=== PATIENT | male | born 2000 | race African-American/Black ===

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

== ENCOUNTER 2019-07-26 19:26 | Emergency (ER) | payer OTHER ==
[~2019-07-26] VITALS: Ht 167.6 cm; Wt 74.8 kg
[~2019-07-26 19:26] MED LIST: DICL100T PO
[2019-07-26 19:58] VITALS: BP 153/97
[2019-07-26] MEDS ORDERED: CYCL10TA2 PO (20:47)
[2019-07-26] MEDS ORDERED: NAPR-514 PO (20:47)
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
== END 2019-07-26 21:02 | disposition home or self-care (01) ==
LOC: ER 19:26
DX: S16.1XXA Strain of muscle, fascia and tendon at neck level, initial encounter (principal); V43.52XA Car driver injured in collision with other type car in traffic accident, initial encounter; Y93.I9 Activity, other involving external motion; Y92.488 Other paved roadways as the place of occurrence of the external cause; Y99.8 Other external cause status
CPT/HCPCS: 99283

== ENCOUNTER 2019-08-29 16:02 | Emergency (ER) | payer OTHER ==
[~2019-08-29] VITALS: Ht 170.2 cm; Wt 64.4 kg
[~2019-08-29 16:02] MED LIST changes: +CYCL10TA2 PO; +NAPR-514 PO
[2019-08-29 16:30] VITALS: BP 144/89
[2019-08-29] MEDS ORDERED: KETOROLAC 60 MG/2 ML VIAL. IM ONE (17:00)
[2019-08-29] MEDS ORDERED: ORPHENADRINE CITRATE 60 MG/2 ML VIAL. IM ONE (17:00)
[2019-08-29] MEDS ORDERED: NAPR-514 PO (17:56)
[2019-08-29] MEDS ORDERED: CYCL10TA2 PO (17:56)
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
== END 2019-08-29 19:05 | disposition home or self-care (01) ==
LOC: ER 16:02
DX: M54.5 Low back pain (principal); G89.11 Acute pain due to trauma; M54.6 Pain in thoracic spine; G89.29 Other chronic pain; V49.49XA Driver injured in collision with other motor vehicles in traffic accident, initial encounter; Y93.89 Activity, other specified; Y92.488 Other paved roadways as the place of occurrence of the external cause; Y99.8 Other external cause status
CPT/HCPCS: 72072; 72100; 96372; 99284; J1885; J2360

== ENCOUNTER → 2019-09-03 | Outpatient (CLI) | payer OTHER ==
[2019-08-29 16:30] VITALS: BP 144/89
--- NOTE | 2019-09-03 15:29 | RAD ---
MRI Cervical Spine Without Contrast History: Neck pain, cervical radiculopathy Technique: Multiplanar, multi sequential noncontrast MR imaging was performed of the cervical spine. Comparison: None Findings: Cervical cord caliber is within normal limits without focal signal abnormality. Cervical vertebral body stature and AP alignment are maintained. There is mild degenerative disc disease C3-4 and C4-5, mild disc desiccation C5-6. There are posterior annular tears C3-4, C4-5, C5-6. There is no significant marrow edema. There are some nodes of the bilateral neck considered somewhat enlarged about 1.5 cm short axis dimension on the left, about 1.1 cm short axis dimension on the right. There is probable mucus retention cyst of the right maxillary sinus about 0.9 cm. C2-C3: Neural foramina and spinal canal are adequate. C3-C4: Spinal canal and neural foramina are adequate. C4-C5: Spinal canal and neural foramina are adequate. C5-C6: Neural foramina and spinal canal are adequate. C6-C7: Spinal canal and neural foramina are adequate. C7-T1: Neural foramina and spinal canal are adequate. Impression: 1. There are nonspecific somewhat enlarged nodes of the bilateral neck for which clinical follow-up advised. 2. There is no cervical spinal stenosis or neural foramina compromise. There is mild degenerative disc disease greatest at C3-4 and C4-5, posterior annular tears C3-4 through C5-6. Electronically signed by: Murray Lopez MD (09/03/2019 3:26 PM) [id number]
--- NOTE | 2019-09-03 15:31 | RAD ---
LUMBAR SPINE WO CONTRAST Date: 09/03/2019 2:45 PM Indication: Low back pain with left lower extremity radiculopathy Comparison: None. Technique: Multi-planar multi-weighted magnetic resonance imaging of the lumbar spine was performed without intravenous contrast using the standard lumbar spine protocol. FINDINGS: The lumbar spine is normally aligned. No acute fracture. The intervertebral discs are normal. Bone marrow signal intensity is normal. The conus terminates at a normal level. No abnormal signal is seen within the visualized distal spinal cord. No clumping of intrathecal nerve roots. No soft tissue abnormality in the visualized abdomen or pelvis. No significant spinal stenosis or neural foraminal narrowing. IMPRESSION: No significant spinal canal stenosis or neural foraminal narrowing. Electronically signed by: Murray Armendariz MD (09/03/2019 3:28 PM) [id number]
== END | disposition home or self-care (01) ==
LOC: MRI 14:02
PROVIDERS: ATTEND Chiropractor
DX: M50.11 Cervical disc disorder with radiculopathy, high cervical region (principal); M54.42 Lumbago with sciatica, left side
CPT/HCPCS: 72141; 72148